=== PATIENT | male | born 1970 | race Caucasian/White ===

== ENCOUNTER 2018-02-10 19:07 | Emergency (ER) | payer MEDICAID ==
[2018-02-10] MEDS ORDERED: IPRATROPIUM/ALBUTEROL 3 ML DEYVIAL IH ONE (19:15)
[2018-02-10] MEDS ORDERED: ALBUTEROL 3 ML DEYVIAL IH ONE (19:38)
[2018-02-10] MEDS ORDERED: ALBUTEROL INH PREPACK MDI TAKEHOME ONE (20:11)
--- NOTE | 2018-02-10 20:11 | EDPHY ---
H & P Smoking Status: Current every day smoker Time Seen by Provider: 02/10/18 19:11 HPI/ROS: CHIEF COMPLAINT: Dyspnea, history of asthma HISTORY OF PRESENT ILLNESS: 48-year-old male presents to the emergency department with dyspnea. The patient has a history of asthma. He last used his albuterol inhaler this morning. He is here for medical clearance for snf. Denies fevers or chills. Denies chest pain. Denies neck or back pain. Denies reported trauma. Patient reports ongoing cough for last few days. REVIEW OF SYSTEMS: Constitutional: No fever, no chills. Eyes: No double or blurry vision. ENT: No sore throat. Respiratory: Cough, shortness of breath Cardiac: No chest pain. Gastrointestinal: No abdominal pain, vomiting or diarrhea. Genitourinary: No dysuria. Musculoskeletal: No neck or back pain. Skin: No rashes. Neurological: No headache. (Elvira Kim) Past Medical/Surgical History: Asthma (Elvira Kim) Social History: Single (Elvira Kim) Physical Exam: General Appearance: Alert, no distress. Eyes: Pupils equal and round. Extraocular motions are all intact. ENT: Mouth: Mucous membranes moist. Respiratory: Expiratory wheezing throughout. No rales. No respiratory distress. Cardiovascular: Regular rate and rhythm. Gastrointestinal: Abdomen is soft and nontender, no masses, no rebound or guarding, bowel sounds normal. Neurological: Alert and oriented x 3, cranial nerves II through XII grossly intact Skin: Warm and dry, no rashes. Musculoskeletal: Nontender to palpate along the cervical, thoracic or lumbar spine. Neck is supple. Extremities: Full range of motion and no peripheral edema. Psychiatric: Patient is oriented X 3, there is no agitation. (Elvira Kim) Constitutional: Initial Vital Signs Temperature (C) 36.5 C 02/10/18 19: Heart Rate 94 02/10/18 19: Respiratory Rate 18 02/10/18 19:09 Blood Pressure 136/78 H 02/10/18 19:09 O2 Sat (%) 95 02/10/18 19:09 O2 Delivery Mode Room Air Allergies/Adverse Reactions: No Known Allergies Allergy (Verified 02/10/18 19:09) Home Medications: Medication Instructions Recorded Albuterol [Proventil Inhaler HFA 1 - 2 puffs IH Q4PRN PRN #1 mdi 02/10/18 (*)] Medical Decision Making ED Course/Re-evaluation: 48-year-old male with a known history of asthma presents to the emergency department with cough and shortness of breath. The patient was given a DuoNeb followed by an albuterol nebulizer. O2 saturation remained 95% on room air. The patient was feeling much better. He has been medically cleared for snf. The nurse has called the snf nurse and in they are requesting a prescription for the albuterol inhaler and not a take-home albuterol inhaler to take to the snf. I do not think antibiotics are indicated. He is afebrile. No history of pneumonia. (Elvira Kim) Differential Diagnosis: Including but not limited to asthma exacerbation, bronchitis, viral upper respiratory infection, pneumonia, influenza (Elvira Kim) Other Provider: The patient was evaluated and managed by the Physician Executive Business Coach. I discussed the patient's presentation and course with the midlevel provider with them and agree with the evaluation. My co-signature indicates that I have reviewed this chart and I agree with the findings and plan of care as documented. I am the secondary supervising physician. (Yoanna aLl) - Data Points Medications Given: Discontinued Medications Albuterol (Proventil Neb) 3 ml IH EDNOW ONE Stop: 02/10/18 19:39 Last Admin: 02/10/18 19:45 Dose: 3 ml Albuterol Sulfate (Proventil Inh Prepack) 1 mdi TAKEHOME EDNOW ONE Stop: 02/10/18 20:12 Last Admin: 02/10/18 20:15 Dose: Not Given Albuterol/Ipratropium (Duoneb) 3 ml IH EDNOW ONE Stop: 02/10/18 19:16 Last Admin: 02/10/18 19:19 Dose: 3 ml Departure - Departure Disposition: Law Enforcement/Court/Senior Living Clinical Impression: Bronchitis Condition: Good Instructions: Albuterol (By breathing), Acute Bronchitis (ED) Additional Instructions: Albuterol inhaler 2 puffs every 4 hr for 1 week and then as needed. 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 Dyspnea
[2018-02-10 20:31] VITALS: BP 150/106
== END 2018-02-10 20:30 ==
DX: J40 Bronchitis, not specified as acute or chronic (principal); F17.200 Nicotine dependence, unspecified, uncomplicated
CPT/HCPCS: J7613